=== PATIENT | female | born 1980 | race Caucasian/White ===

== ENCOUNTER 2016-10-15 12:52 | Emergency (ER) | payer OTHER ==
[~2016-10-15] VITALS: Ht 157.5 cm; Wt 49.9 kg
[2016-10-15 13:15] VITALS: Ht 157.5 cm; Wt 49.9 kg
[2016-10-15] MEDS ORDERED: SOD CHLORIDE 0.9% 1,000 ML IV STA (15:54)
[2016-10-15] MEDS ORDERED: ACETAMINOPHEN 325 MG TAB PO ONE (16:00)
[2016-10-15 16:26] LABS: ADD SCAN DIFF NO
[2016-10-15 16:29] LABS: BASOPHILS % 0.2 % (0.0-2.0); EOSINOPHILS % 0.9 % (0.0-7.0); HEMOGLOBIN 12.8 g/dl (12.0-16.0); LYMPHOCYTES # 1.2 10^3/ul (0.8-2.9); LYMPHOCYTES % 27.5 % (15.0-51.0); MEAN CORPUSCULAR HEMOGLOBIN 27.9 pg (29.0-33.0); MEAN CORPUSCULAR VOLUME 87.3 fl (82.0-101.0); MEAN PLATELET VOLUME 10.9 fl (7.4-10.4); MONOCYTE # 0.4 10^3/ul (0.3-0.9); NEUTROPHIL # 2.6 10^3/ul (1.6-7.5); NEUTROPHILS % 61.2 % (39.0-77.0); PLATELET COUNT 159 10^3/UL (140-415); RED BLOOD COUNT 4.58 10^6/ul (4.20-5.40); RED CELL DISTRIBUTION WIDTH 13.3 % (11.5-14.5); WHITE BLOOD COUNT 4.2 10^3/ul (4.8-10.8)
[2016-10-15 16:31] LABS: ADD UMIC NO; URINE BILIRUBIN (Dip) NEGATIVE (NEGATIVE); URINE BLOOD (Dip) NEGATIVE (NEGATIVE); URINE COLOR LT. YELLOW (YELLOW); URINE GLUCOSE (Dip) NEGATIVE (NEGATIVE); URINE KETONES (Dip) NEGATIVE (NEGATIVE); URINE LEUKOCYTE ESTERASE (Dip) NEGATIVE (NEGATIVE); URINE NITRITE (Dip) NEGATIVE (NEGATIVE); URINE TOTAL PROTEIN (Dip) NEGATIVE (NEGATIVE); URINE UROBILINOGEN (Dip) 0.2 E.U./dL (0.1-1.0)
[2016-10-15 16:46] LABS: ALBUMIN 4.2 g/dl (3.3-4.9); POTASSIUM 4.1 mmol/L (3.5-5.1)
[2016-10-15 16:48] LABS: BILIRUBIN,INDIRECT 0.1 mg/dl (0-1.1); BILIRUBIN,TOTAL 0.1 mg/dl (0.2-1.3); CREATININE 0.59 mg/dl (0.44-1.00)
[2016-10-15 16:49] LABS: ALBUMIN/GLOBULIN RATIO 1.27; CALCIUM 8.7 mg/dl (8.4-10.2); TOTAL PROTEIN 7.5 g/dl (6.1-8.1)
--- NOTE | 2016-10-15 16:58 | RADRPT ---
PROCEDURE: XR Chest. CLINICAL INDICATION: Cough and fever. TECHNIQUE: Single frontal view. COMPARISON: None. FINDINGS: The lungs are clear. The heart size is normal. There is no pleural effusion. There is no pneumothorax. IMPRESSION: 1. Normal chest radiograph. RPTAT: QQ .Simon Arora MD, Date Time Electronically viewed and signed by .Simon Arora MD, on 10/15/2016 16:58 .R/
[2016-10-15] MEDS ORDERED: IBUP400T22 PO (17:02)
[2016-10-15] MEDS ORDERED: PROM5SYR2 PO (17:02)
[2016-10-15] MEDS ORDERED: OSLT75C PO (17:02)
--- NOTE | 2016-10-15 17:05 | ERD ---
ER Documentation Chief Complaint Date/Time DATE: 10/15/16 TIME: 17:03 Chief Complaint UTI X 2 days in last 20 days. B flank pain. HPI This 36-year-old female presents with referral from the primary doctor. History is significant for being treated for urinary tract infection twice in the last 3 weeks. Patient is referred for fever, body aches and possible persistent leukocytes and ketones in the urine. Patient does have a dry cough and body aches and some mild epigastric area abdominal wall pain. She denies vomiting, diarrhea or urinary complaints. She denies any CVA tenderness but has mild generalized myalgias including her lower back. ROS All systems reviewed and are negative except as per history of present illness. Medications Home Meds Active Scripts Promethazine HCl/Codeine (Prometh-Codein 6.25-10 mg/5 ml) 5 Ml Syrup, 5 ML PO QID for 5 Days 4 ounces Prov:LAMAR KELLOGG MD 10/15/16 Oseltamivir Phosphate* (Tamiflu*) 75 Mg Capsule, 75 MG PO BID for 5 Days, CAP Prov:LAMAR KELLOGG MD 10/15/16 Ibuprofen* (Motrin*) 400 Mg Tab, 400 MG PO Q6, #15 TAB Prov:LAMAR KELLOGG MD 10/15/16 PMhx/Soc Hx Substance Use: No Smoking Status: Never smoker Physical Exam Vitals Vital Signs Date Time Temp Pulse Resp B/P Pulse Ox O2 Delivery O2 Flow Rate FiO2 10/15/16 13:15 98.8 105 20 125/64 98 Physical Exam Const: [] Head: Atraumatic Eyes: Normal Conjunctiva ENT: Normal External Ears, Nose and Mouth. Neck: Full range of motion..~ No meningismus. Resp: Clear to auscultation bilaterally Cardio: Regular rate and rhythm, no murmurs Abd: Soft, non tender, non distended. Normal bowel sounds Skin: No petechiae or rashes Back: No midline or flank tenderness Ext: No cyanosis, or edema Neur: Awake and alert Psych: Normal Mood and Affect Result Diagram: 10/15/16 1606 10/15/16 1606 Results 24 hrs Laboratory Tests Test 10/15/16 16:06 10/15/16 16:17 Alanine Aminotransferase (ALT/SGPT) 21IU/L Albumin 4.2g/dl Albumin/Globulin Ratio 1.27 Alkaline Phosphatase 52IU/L Anion Gap 16 Aspartate Amino Transf (AST/SGOT) 22IU/L Basophils # 0.010^3/ul Basophils % 0.2% Blood Urea Nitrogen 6mg/dl Calcium Level 8.7mg/dl Carbon Dioxide Level 27mmol/L Chloride Level 103mmol/L Creatinine 0.59mg/dl Direct Bilirubin 0.00mg/dl Eosinophils # 0.010^3/ul Eosinophils % 0.9% Globulin 3.30g/dl Glucose Level 90mg/dl Hematocrit 40.0% Hemoglobin 12.8g/dl Indirect Bilirubin 0.1mg/dl Lipase 130U/L Lymphocytes # 1.210^3/ul Lymphocytes % 27.5% Mean Corpuscular Hemoglobin 27.9pg Mean Corpuscular Hemoglobin Concent 32.0g/dl Mean Corpuscular Volume 87.3fl Mean Platelet Volume 10.9fl Monocytes # 0.410^3/ul Monocytes % 10.0% Neutrophils # 2.610^3/ul Neutrophils % 61.2% Nucleated Red Blood Cells # 0.010^3/ul Nucleated Red Blood Cells % 0.0/100WBC Platelet Count 49251^3/UL Potassium Level 4.1mmol/L Red Blood Count 4.5810^6/ul Red Cell Distribution Width 13.3% Sodium Level 142mmol/L Total Bilirubin 0.1mg/dl Total Protein 7.5g/dl White Blood Count 4.210^3/ul Urine Bilirubin NEGATIVE Urine Clarity CLEAR Urine Color LT. YELLOW Urine Glucose NEGATIVE% Urine Hemoglobin NEGATIVE Urine Ketones NEGATIVE Urine Leukocyte Esterase NEGATIVE Urine Nitrite NEGATIVE Urine Specific [place] 1.015 Urine Total Protein NEGATIVE Urine Urobilinogen 0.2 E.U./dL Urine pH 7.0 Current Medications Medications (Trade) Dose Ordered Sig/Laura Route PRN Reason Start Time Stop Time Status Last Admin Dose Admin Sodium Chloride (NS) 1,000 ml @ 1,000 mls/hr Q1H STAT IV 10/15/16 15:54 10/15/16 16:53 DC 10/15/16 16:05 Acetaminophen (Tylenol Tab) 650 mg ONCE ONCE PO 10/15/16 16:00 10/15/16 16:01 DC 10/15/16 16:05 Procedures/MDM Urine is negative for leukocytes, nitrites, blood and glucose. HCG is negative. CBC shows white blood cell count 4.2, otherwise normal. CMP is normal. Chest X-ray 1V Interpreted by me: Soft Tissue: No acute abnormalities Bones: No acute abnormalities Mediastinum/Cardiac Silhouette/Lungs: [No acute abnormalities]. Impression- normal 1 view chest x-ray Influenza swab is negative. Patient was given 1 L normal saline IV and Tylenol p.o. Patient since with febrile illness, URI symptoms with a history of being treated for urinary tract infection. Patient has signs and symptoms of likely influenza as UTI appears treated no other signs or symptoms of significant illness. She will be treated with ibuprofen, Tamiflu cough syrup home and further observation with instructions for clear fluids. Patient is advised to follow-up with primary doctor this week return to the ER for new or worsening symptoms. The patient was stable with no new complaints during the ER course. Clinically, there is no current evidence to suggest meningitis, sepsis, acute abdomen, pneumonia, acute coronary syndrome, pulmonary embolism, or any other emergent condition appearing to require further evaluation or hospitalization. The patient should certainly return for any new or worsening symptoms per the aftercare instructions. They should otherwise follow-up with her primary care doctor for reevaluation this week. Departure Diagnosis: Primary Impression: URI (upper respiratory infection) URI type: unspecified URI Qualified Code: J06.9 - Upper respiratory tract infection, unspecified type Additional Impression: Fever Fever type: unspecified Qualified Code: R50.9 - Fever, unspecified fever cause Condition: Stable Patient Instructions: Fever Control (Adult), Uri, Viral, No Abx (Adult) Additional Instructions: All examinations normal today including urine. I suspect flu type illness and we will treat for this. Recheck for new or worsening symptoms or with primary care doctor. LAMAR KELLOGG MD Oct 15, 2016 17:05
== END 2016-10-15 17:22 | disposition home or self-care (01) ==
LOC: FTE 12:52
DX: J06.9 Acute upper respiratory infection, unspecified (principal)
CPT/HCPCS: 36415; 71010; 80053; 81003; 83690; 85025; 87086; 87400; J7030; Z7502; Z7610